=== PATIENT | female | born 1970 | race Caucasian/White ===

== ENCOUNTER → 2017-07-30 | Outpatient (CLI) | payer OTHER ==
[~2017-07-30] MED LIST: AMLODIPINE BESYL5 MG PO; CIPRO500 MG PO; COZAAR 50 MG TA50 M2 PO; ENOXAPARIN80 MG/0.1 SUBQ; FLAGYL500 MG PO
== END ==
LOC: M.CT 07:56
DX: I81 Portal vein thrombosis (principal); R16.1 Splenomegaly, not elsewhere classified; K86.2 Cyst of pancreas

== ENCOUNTER → 2017-11-04 | Outpatient (CLI) | payer OTHER | LOC: M.RAD 11-02 09:40 | DX: Z12.31 Encounter for screening mammogram for malignant neoplasm of breast (principal) ==

== ENCOUNTER → 2018-02-18 | Outpatient (CLI) | payer OTHER | LOC: M.CT 10:01 | DX: I81 Portal vein thrombosis (principal); R16.1 Splenomegaly, not elsewhere classified; I10 Essential (primary) hypertension ==

== ENCOUNTER → 2018-11-02 | Outpatient (CLI) | payer OTHER | LOC: M.RAD 06:58 | DX: Z12.31 Encounter for screening mammogram for malignant neoplasm of breast (principal) ==